=== PATIENT | male | born 1970 | race Caucasian/White ===

== ENCOUNTER 2017-01-23 00:58 | Observation (INO) | payer OTHER ==
[2017-01-23] VITALS (10 sets, daily range): BP systolic 141–204; BP diastolic 91–116; PULSE 67–82; RESP 15–18; TEMP 97.5–97.7; O2SAT 95–99
[2017-01-23] MEDS ORDERED: IOHEXOL 350 MG/ML 10 ML VIAL (for RAD DIAG) IVCONTRAST ONE (00:59)
[2017-01-23] MEDS ORDERED: NITROGLYCERIN 0.4 MG SL 25 TABS/BTL SL ONE (01:30)
[2017-01-23] MEDS ORDERED: ASPIRIN 81 MG CHEW TAB PO ONE (01:30)
[2017-01-23] MEDS ORDERED: SODIUM CHLORIDE 0.9% FLUSH 10 ML FLUSH IVF PRN (01:30)
[2017-01-23] MEDS ORDERED: ALLO300T2 PO (01:32)
[2017-01-23] MEDS ORDERED: ATOR1TAB18 PO (01:32)
[2017-01-23] MEDS ORDERED: LISI10TA3 PO (01:32)
--- NOTE | 2017-01-23 01:34 | PD ---
HPI Chief Complaint: Chest Pain Time Seen by Provider: :26 Travel History International Travel<30 days: No Contact w/Intl Traveler<30days: No Traveled to known affect area: No History of Present Illness HPI 46-year-old male with history of hypertension, hyperlipidemia, fluid and yesterday from [place] for vacation, here for evaluation of chest pain. The patient reports that when he was lying down to go to sleep tonight at around 11: 00 PM he began to have substernal chest discomfort. The pain was constant, no modifying factors, does not radiate. Currently the pain is a lot less than what it was, however is still present. He states that his lisinopril was recently increased about 3 weeks ago and after taking his dose this morning he felt a degrees sensation. He denies fevers, chills, cough, recent illness. No history of DVT or PE. No known history of coronary artery disease. No family history of coronary artery disease. He is a nonsmoker. He reports similar symptoms 2 weeks ago in [place] and reports that he was admitted for overnight observation and have a stress test that he was told was normal. [facility] Past Medical History High Cholesterol: Yes Diminished Hearing: No Hypertension: Yes Past Surgical History Surgical History: No Previous Surgery Social History Alcohol Use: Yes (4 DRINKS DAILY) Tobacco Use: No Substance Use: No Allergies-Medications (Allergen,Severity, Reaction): Coded Allergies: No Known Allergies (Unverified , 01/23/17) Reported Meds & Prescriptions Reported Meds & Active Scripts Active Reported Allopurinol 300 Mg Tab 300 Mg PO DAILY Atorvastatin (Atorvastatin Calcium) 80 Mg Tab 80 Mg PO HS Lisinopril 10 Mg Tab 10 Mg PO BID Review of Systems Except as stated in HPI: all other systems reviewed are Neg Physical Exam Narrative GENERAL: Well-developed, well-nourished, comfortable, no apparent distress. SKIN: Focused skin assessment warm/dry. HEAD: Atraumatic. Normocephalic. EYES: Pupils equal and round. No scleral icterus. No injection or drainage. ENT: Mucous membranes pink and moist. NECK: Trachea midline. No JVD. CARDIOVASCULAR: Regular rate and rhythm. Distal pulses brisk and equal bilaterally. RESPIRATORY: No accessory muscle use. Clear to auscultation. Breath sounds equal bilaterally. GASTROINTESTINAL: Abdomen soft, non-tender, nondistended. MUSCULOSKELETAL: No obvious deformities. No clubbing. No cyanosis. No edema. NEUROLOGICAL: Awake and alert. No obvious cranial nerve deficits. Motor grossly within normal limits. Normal speech. PSYCHIATRIC: Appropriate mood and affect; insight and judgment normal. Data Data Last Documented VS Vital Signs Date Time Temp Pulse Resp B/P (MAP) Pulse Ox O2 Delivery O2 Flow Rate FiO2 01/23/17 02:56 75 16 159/103 (121) 96 Nasal Cannula 01/23/17 01:22 2.00 01/23/17 00:59 97.7 Orders Orders Electrocardiogram (01/23/17 01:30) Basic Metabolic Panel (Bmp) (01/23/17 01:30) Ckmb (Isoenzyme) Profile (01/23/17:30) Complete Blood Count With Diff (01/23/17:30) D-Dimer (01/23/17 01:30) Prothrombin Time / Inr (Pt) (01/23/17 01:30) Act Partial Throm Time (Ptt) (01/23/17:30) Troponin I (01/23/17 01:30) Chest, Single Ap (01/23/17 01:30) Ecg Monitoring (01/23/17 01:30) Iv Access Insert/Monitor (01/23/17:30) Oximetry (01/23/17 01:30) Aspirin Chew (Aspirin Chew) (01/23/17 01:30) Sodium Chloride 0.9% Flush (Ns Flush) (01/23/17 01:30) Nitroglycerin Sl (Nitrostat Sl) (01/23/17 01:30) CKMB (01/23/17 01:00) CKMB% (01/23/17 01:00) Ct Pulmonary Angiogram (01/23/17 02:31) Iohexol 350 Inj (Omnipaque 350 Inj) (01/23/17 00:59) Labs Laboratory Tests Test 01/23/17 01:00 White Blood Count 8.6 TH/MM3 Red Blood Count 5.01 MIL/MM3 Hemoglobin 15.1 GM/DL Hematocrit 42.7 % Mean Corpuscular Volume 85.1 FL Mean Corpuscular Hemoglobin 30.1 PG Mean Corpuscular Hemoglobin Concent 35.4 % Red Cell Distribution Width 13.8 % Platelet Count 215 TH/MM3 Mean Platelet Volume 8.7 FL Neutrophils (%) (Auto) 58.5 % Lymphocytes (%) (Auto) 26.6 % Monocytes (%) (Auto) 11.0 % Eosinophils (%) (Auto) 3.3 % Basophils (%) (Auto) 0.6 % Neutrophils # (Auto) 5.1 TH/MM3 Lymphocytes # (Auto) 2.3 TH/MM3 Monocytes # (Auto) 0.9 TH/MM3 Eosinophils # (Auto) 0.3 TH/MM3 Basophils # (Auto) 0.1 TH/MM3 CBC Comment DIFF FINAL Differential Comment Prothrombin Time 10.0 SEC Prothromb Time International Ratio 0.9 RATIO Activated Partial Thromboplast Time 25.9 SEC D-Dimer Quantitative (PE/DVT) 0.60 MG/L FEU Blood Urea Nitrogen 19 MG/DL Creatinine 1.04 MG/DL Random Glucose 107 MG/DL Calcium Level 8.9 MG/DL Sodium Level 140 MEQ/L Potassium Level 3.9 MEQ/L Chloride Level 106 MEQ/L Carbon Dioxide Level 25.3 MEQ/L Anion Gap 9 MEQ/L Estimat Glomerular Filtration Rate 77 ML/MIN Total Creatine Kinase 182 U/L Creatine Kinase MB 1.5 NG/ML Troponin I LESS THAN 0.02 NG/ML MDM Medical Decision Making Medical Screen Exam Complete: Yes Emergency Medical Condition: Yes Interpretation(s) EKG: Sinus, rate 75, normal axis, normal intervals, no acute ischemic abnormality. Differential Diagnosis ACS, pneumothorax, pericarditis, PE, pneumonia, hypertensive crisis, GERD Narrative Course Vital signs reviewed, blood pressure improved from 204/116-159/103 after sublingual nitroglycerin. CBC is unremarkable. BMP is essentially unremarkable. Cardiac enzymes are negative. D-dimer slightly elevated at 0.6. Chest x-ray shows no acute disease. The pulmonary angiogram shows no PE, no infiltrate. Patient's chest pain resolved with sublingual nitroglycerin. He has several cardiac risk factors. I would like to place him in the chest pain center for further cardiac evaluation. He is amenable to this plan. Diagnosis Primary Impression: Chest pain Qualified Codes: R07.9 - Chest pain, unspecified Admitting Information Admitting Physician Requests: Sukhdeep Yu MD Jan 23, 2017 01:34
[2017-01-23 01:53] LABS: AUTOMATED NEUTROPHIL # 5.1 TH/MM3 (1.8-7.7); BASOPHIL # 0.1 TH/MM3 (0-0.2); BASOPHIL % 0.6 % (0.0-2.0); EOSINOPHIL # 0.3 TH/MM3 (0-0.4); EOSINOPHIL % 3.3 % (0.0-4.0); HEMATOCRIT 42.7 % (39.0-51.0); HEMOGLOBIN 15.1 GM/DL (13.0-17.0); LYMPH % 26.6 % (9.0-44.0); LYMPHOCYTE # 2.3 TH/MM3 (1.0-4.8); MEAN CELL VOLUME 85.1 FL (80.0-100.0); MEAN CORPUSCULAR HEMOGLOBIN 30.1 PG (27.0-34.0); MEAN CORPUSCULAR HGB CONC 35.4 % (32.0-36.0); MEAN PLATELET VOLUME 8.7 FL (7.0-11.0); MONOCYTE # 0.9 TH/MM3 (0-0.9); NEUT % 58.5 % (16.0-70.0); PLATELET COUNT 215 TH/MM3 (150-450); RED BLOOD COUNT 5.01 MIL/MM3 (4.50-5.90); RED CELL DISTRIBUTION WIDTH 13.8 % (11.6-17.2); WHITE BLOOD COUNT 8.6 TH/MM3 (4.0-11.0)
[2017-01-23 02:16] LABS: BICARBONATE 25.3 MEQ/L (21.0-32.0); BLOOD UREA NITROGEN 19 MG/DL (7-18); CALCIUM 8.9 MG/DL (8.5-10.1); CHLORIDE 106 MEQ/L (98-107); CREATININE 1.04 MG/DL (0.60-1.30); GLOMERULAR FILTRATION RATE 77 ML/MIN (>89); GLUCOSE,RANDOM 107 MG/DL (74-106); SODIUM (NA) 140 MEQ/L (136-145); TROPONIN I LESS THAN 0.02 NG/ML (0.02-0.05)
--- NOTE | 2017-01-23 02:19 | RADRPT ---
EXAM DATE/TIME: 01/23/2017 01:39 [facility] COMPARISON: No previous studies available for comparison. INDICATIONS : Chest pain. MEDICAL HISTORY : Hypertension. SURGICAL HISTORY : None. ENCOUNTER: Initial ACUITY: 3 weeks PAIN SCORE: 5/10 LOCATION: Bilateral chest FINDINGS: A single view of the chest demonstrates the lungs to be symmetrically aerated without evidence of mas s, infiltrate or effusion. The cardiomediastinal contours are unremarkable. Osseous structures are intact. CONCLUSION: No acute disease. Frank Rangel MD on January 23, 2017 at 2:18 Board Certified Radiologist. This report was verified electronically.
[2017-01-23 02:21] LABS: INTERNATIONAL NORMALIZED RATIO 0.9 RATIO
[2017-01-23 02:23] LABS: D-DIMER 0.6 MG/L FEU (0.00-0.50)
--- NOTE | 2017-01-23 03:57 | RADRPT ---
EXAM DATE/TIME: 01/23/2017 03:18 [facility] COMPARISON: No previous studies available for comparison. INDICATIONS : Midsternal chest pain. Elevated D-Dimer. IV CONTRAST: 70 cc Omnipaque 350 (iohexol) IV RADIATION DOSE: 23.38 CTDIvol (mGy) MEDICAL HISTORY : Hypertension. SURGICAL HISTORY : None. ENCOUNTER: Initial ACUITY: 1 day PAIN SCALE: 6/10 LOCATION: chest TECHNIQUE: Volumetric scanning of the chest was performed using a pulmonary embolism protocol MIP images were re constructed. Using automated exposure control and adjustment of the mA and/or kV according to patien t size, radiation dose was kept as low as reasonably achievable to obtain optimal diagnostic quality images. DICOM format image data is available electronically for review and comparison. Follow-up recommendations for detected pulmonary nodules are based at a minimum on nodule size and pa tient risk factors according to Fleischner Society Guidelines. FINDINGS: PULMONARY ARTERIES: No filling defects are seen in the pulmonary arteries through the segmental level. LUNGS: There is no consolidation or pneumothorax . No concerning pulmonary nodule is visualized. PLEURAE: There is no pleural thickening or pleural effusion. MEDIASTINUM: There is good visualization of the great vessels of the middle mediastinum. No evidence of mediastin al or hilar adenopathy/mass. MUSCULOSKELETAL: Within normal limits for patient age. MISCELLANEOUS: The visualized upper abdominal organs demonstrate no acute abnormality. CONCLUSION: 1. No evidence of pulmonary embolism. 2. No infiltrate. Frank Rangel MD on January 23, 2017 at 3:55 Board Certified Radiologist. This report was verified electronically.
[2017-01-23] MEDS ORDERED: SODIUM CHLORIDE 0.9% FLUSH 10 ML FLUSH IV FLUSH PRN (04:30)
[2017-01-23 05:29] LABS: TROPONIN I LESS THAN 0.02 NG/ML (0.02-0.05)
--- NOTE | 2017-01-23 08:24 | HHI.HP ---
HPI Primary Care Physician Non-Staff Chief Complaint CHEST PAIN History of Present Illness This is a 46-year-old male that presents to ED to evaluate CP that began last night. States it woke him up several times each lasting a few minutes at a time. Does not recall being short of breath, nauseous, or diaphoretic. States he was recently diagnosed with hypertension placed on lisinopril 3 weeks ago. States he's had intermittent dizziness but this was prior to starting lisinopril. Denies difficulty swallowing. Denies swelling in his mouth. Flew to [facility] couple days ago from [place] for vacation. Denies calf pain or swelling. Denies inspirational chest discomfort. Denies recent illness. Denies fevers or chills. States he has seen a asp net mvc developer and had a normal stress test 2 weeks ago by the asp net mvc developer. Review of Systems General: Patient denies fevers, chills recent, and recent travel HEENT: Patient denies headache, sore throat, difficulty swallowing. Cardiovascular: Has the chest discomfort as mentioned above. Denies sensation of heart beating rapidly or irregularly. No syncope. Denies diaphoresis. Respiratory: Denies shortness of breath or inspirational chest discomfort. Denies coughing wheezing or hemoptysis. GI: Patient denies nausea, vomiting, diarrhea, abdominal pain, bloody stools. Musculoskeletal: Patient denies joint pain or edema. Denies calf pain or edema. Neurovascular: Patient denies numbness, tingling, weakness in extremities. Denies headache. Endocrine: Denies polyuria and polydipsia. Hematologic: Denies easy bruising. Skin: Denies rash or itching. Past Family Social History Allergies: Coded Allergies: No Known Allergies (Unverified , 01/23/17) Past Medical History Recently diagnosed hypertension and hyperlipidemia. Denies diabetes and known CAD. Past Surgical History Denies. Reported Medications Reported Meds & Active Scripts Active Reported Allopurinol 300 Mg Tab 300 Mg PO DAILY Atorvastatin (Atorvastatin Calcium) 80 Mg Tab 80 Mg PO HS Lisinopril 10 Mg Tab 10 Mg PO BID Active Ordered Medications Current Medications Medications (Trade) Dose Ordered Sig/Zaki Route Start Time Stop Time Status Last Admin (NS Flush) 2 ml UNSCH PRN IVF 01/23/17 01:30 (NS Flush) 2 ml UNSCH PRN IV FLUSH 01/23/17 04:30 (NS Flush) 2 ml BID IV FLUSH 01/23/17 09:00 01/23/17 08:00 Family History Denies family history of CAD. Social History Does not smoke. Has occasional alcohol. Denies illicit drugs. Physical Exam Vital Signs Vital Signs Date Time Temp Pulse Resp B/P (MAP) Pulse Ox O2 Delivery O2 Flow Rate FiO2 01/23/17 07:43 97.7 67 15 155/91 (112) 99 01/23/17 07:09 95 21 01/23/17 06:07 79 01/23/17 05:51 97.5 69 18 141/96 (111) 98 01/23/17 05:45 96 Room Air 01/23/17 05:34 68 16 147/94 (111) Room Air 01/23/17 05:04 96 Nasal Cannula 2.00 01/23/17 02:56 75 16 159/103 (121) 96 Nasal Cannula 01/23/17 02:00 76 16 158/95 (116) 01/23/17 01:22 77 18 98 Nasal Cannula 2.00 01/23/17 00:59 97.7 82 18 204/116 (145) 99 Room Air Physical Exam GENERAL: This is a well-nourished, well-developed patient, in no apparent distress. Patient speaks in clear complete sentences. Patient is pleasant. HEENT: Head is atraumatic and normocephalic. Neck is supple without lymphadenopathy and trachea is midline. No JVD or carotid bruits. CARDIOVASCULAR: Regular rate and rhythm without murmurs, gallops, or rubs. RESPIRATORY: Clear to auscultation. Breath sounds equal bilaterally. No wheezes , rales, or rhonchi. Chest wall is nontender. No use of accessory muscles. GASTROINTESTINAL: Abdomen is nontender, nondistended. Abdomen soft. No obvious pulsatile mass or bruit. No CVA tenderness. Strong femoral pulses bilaterally. Normal bowel sounds in all quadrants. MUSCULOSKELETAL: Patient is moving upper and lower extremities freely. No calf tenderness or edema, no Homans sign. Strong pulses in upper and lower extremities. NEUROLOGICAL: Patient is alert and oriented. Cranial nerves 2-12 are grossly intact. No focal deficits and speech is clear. SKIN: No rash and turgor is normal. Laboratory Laboratory Tests Test 01/23/17 01:00 01/23/17 04:10 10/26/17 07:15 White Blood Count 8.6 Red Blood Count 5.01 Hemoglobin 15.1 Hematocrit 42.7 Mean Corpuscular Volume 85.1 Mean Corpuscular Hemoglobin 30.1 Mean Corpuscular Hemoglobin Concent 35.4 Red Cell Distribution Width 13.8 Platelet Count 215 Mean Platelet Volume 8.7 Neutrophils (%) (Auto) 58.5 Lymphocytes (%) (Auto) 26.6 Monocytes (%) (Auto) 11.0 Eosinophils (%) (Auto) 3.3 Basophils (%) (Auto) 0.6 Neutrophils # (Auto) 5.1 Lymphocytes # (Auto) 2.3 Monocytes # (Auto) 0.9 Eosinophils # (Auto) 0.3 Basophils # (Auto) 0.1 CBC Comment DIFF FINAL Differential Comment Prothrombin Time 10.0 Prothromb Time International Ratio 0.9 Activated Partial Thromboplast Time 25.9 D-Dimer Quantitative (PE/DVT) 0.60 Blood Urea Nitrogen 19 Creatinine 1.04 Random Glucose 107 Calcium Level 8.9 Sodium Level 140 Potassium Level 3.9 Chloride Level 106 Carbon Dioxide Level 25.3 Anion Gap 9 Estimat Glomerular Filtration Rate 77 Total Creatine Kinase 182 97 Creatine Kinase MB 1.5 Troponin I LESS THAN 0.02 LESS THAN 0.02 Result Diagram: 01/23/179901/23/1799 Imaging Last [address] Angiography 01/23/17230 Signed Impressions: Service Date/Time: December 03:18 - CONCLUSION: 1. No evidence of pulmonary embolism. 2. No infiltrate. Frank Rangel MD Chest X-Ray 01/23/17129 Signed Impressions: Service Date/Time: December 01:39 - CONCLUSION: No acute disease. Frank Rangel MD Course EKGs are sinus rhythm without significant ST segment depressions or elevations. Caprini VTE Risk Assessment Caprini VTE Risk Assessment: No/Low Risk (score <= 1) Caprini Risk Assessment Model Point Value = 1 Point Value = 2 Point Value = 3 Point Value = 5 Age 41-60 Minor surgery BMI > 25 kg/m2 Swollen legs Varicose veins or History of unexplained or recurrent spontaneous Oral contraceptives or hormone replacement Sepsis (< 1 month) Serious lung disease, including pneumonia (< 1 month) Abnormal pulmonary function Acute myocardial infarction Congestive heart failure (< 1 month) History of inflammatory bowel disease Medical patient at bed rest Age 61-74 Arthroscopic surgery Major open surgery (> 45 min) Laparoscopic surgery (> 45 min) Malignancy Confined to bed (> 72 hours) Immobilizing plaster cast Central venous access Age >= 75 History of VTE Family history of VTE Factor V Leiden Prothrombin [id number] Lupus anticoagulant Anticardiolipin antibodies Elevated serum homocysteine Heparin-induced thrombocytopenia Other congenital or acquired thrombophilia Stroke (< 1 month) Elective arthroplasty Hip, pelvis, or leg fracture Acute spinal cord injury (< 1 month) Prophylaxis Regimen Total Risk Factor Score Risk Level Prophylaxis Regimen 0-1 Low Early ambulation 2 Moderate Order ONE of the following: *Sequential Compression Device (SCD) *Heparin 5000 units SQ BID 3-4 Higher Order ONE of the following medications: *Heparin 5000 units SQ TID *Enoxaparin/Lovenox 40 mg SQ daily (WT < 150 kg, CrCl > 30 mL/min) *Enoxaparin/Lovenox 30 mg SQ daily (WT < 150 kg, CrCl > 10-29 mL/min) *Enoxaparin/Lovenox 30 mg SQ BID (WT < 150 kg, CrCl > 30 mL/min) AND/OR *Sequential Compression Device (SCD) 5 or more Highest Order ONE of the following medications: *Heparin 5000 units SQ TID (Preferred with Epidurals) *Enoxaparin/Lovenox 40 mg SQ daily (WT < 150 kg, CrCl > 30 mL/min) *Enoxaparin/Lovenox 30 mg SQ daily (WT < 150 kg, CrCl > 10-29 mL/min) *Enoxaparin/Lovenox 30 mg SQ BID (WT < 150 kg, CrCl > 30 mL/min) AND *Sequential Compression Device (SCD) Assessment and Plan Assessment and Plan * Atypical chest pain: Patient has had serial cardiac enzymes and EKGs for ruling out purposes. He was seen by Dr. Carlos Costa of cardiology and the chest pain center. Had stated recent normal stress test 2 weeks ago in [place]. There will be no further cardiac testing at this time. He should follow back with his edition return to [place] but return to ED for interval issues. * Hypertension: Continue current medication. * Hyperlipidemia: Continue current medication. Patient is stable at this time. He is agreeable to this plan. Tutu Smith Jan 23, 2017 08:24
[2017-01-23] MEDS ORDERED: SODIUM CHLORIDE 0.9% FLUSH 10 ML FLUSH IV FLUSH SCH (09:00)
[2017-01-23 09:02] LABS: TROPONIN I LESS THAN 0.02 NG/ML (0.02-0.05)
--- NOTE | 2017-01-23 09:19 | HHI.DCPOC ---
Discharge Care Plan Diagnosis: (1) Hypertension (2) Hyperlipidemia (3) Chest pain Goals to Promote Your Health * To prevent worsening of your condition and complications * To maintain your health at the optimal level Directions to Meet Your Goals Take your medications as prescribed Follow your dietary instruction Follow activity as directed Keep your appointments as scheduled Take your immunizations and boosters as scheduled If your symptoms worsen call your PCP, if no PCP go to Urgent Care Center or Emergency Room Smoking is Dangerous to Your Health. Avoid second hand smoke Call the 24-hour hour crisis hotline for domestic abuse at Tutu Smith Jan 23, 2017 09:19
--- NOTE | 2017-01-23 09:19 | HHI.DCPOC ---
Discharge Care Plan Diagnosis: (1) Hypertension (2) Hyperlipidemia (3) Chest pain Goals to Promote Your Health * To prevent worsening of your condition and complications * To maintain your health at the optimal level Directions to Meet Your Goals Take your medications as prescribed Follow your dietary instruction Follow activity as directed Keep your appointments as scheduled Take your immunizations and boosters as scheduled If your symptoms worsen call your PCP, if no PCP go to Urgent Care Center or Emergency Room Smoking is Dangerous to Your Health. Avoid second hand smoke Call the 24-hour hour crisis hotline for domestic abuse at Tutu Smith Jan 23, 2017 09:19
--- NOTE | 2017-01-23 09:19 | HHI.DCPOC ---
Discharge Care Plan Diagnosis: (1) Hypertension (2) Hyperlipidemia (3) Chest pain Goals to Promote Your Health * To prevent worsening of your condition and complications * To maintain your health at the optimal level Directions to Meet Your Goals Take your medications as prescribed Follow your dietary instruction Follow activity as directed Keep your appointments as scheduled Take your immunizations and boosters as scheduled If your symptoms worsen call your PCP, if no PCP go to Urgent Care Center or Emergency Room Smoking is Dangerous to Your Health. Avoid second hand smoke Call the 24-hour hour crisis hotline for domestic abuse at Tutu Smith Jan 23, 2017 09:19
[2017-01-23] MEDS ORDERED: LISINOPRIL 10 MG TAB PO SCH (09:30)
[2017-01-23] MEDS ORDERED: ATORVASTATIN 80 MG TAB PO SCH (21:00)
[2017-01-24] MEDS ORDERED: ALLOPURINOL 300 MG TAB PO SCH (09:00)
--- NOTE | 2017-01-25 12:57 | EKG ---
Date Performed: 01/23/2017 Time Performed: 07:37:11 PTAGE: 46 years EKG: Sinus rhythm NORMAL ECG NO PREVIOUS TRACING DOCTOR: Agustin Lance Interpretating Date/Time 01/25/2017 12:56:09
--- NOTE | 2017-01-25 12:57 | EKG ---
Date Performed: 01/23/2017 Time Performed: 04:07:06 PTAGE: 46 years EKG: Sinus rhythm NORMAL ECG NO PREVIOUS TRACING DOCTOR: Agustin Lance Interpretating Date/Time 01/25/2017 12:56:37
--- NOTE | 2017-01-25 12:57 | EKG ---
Date Performed: 01/23/2017 Time Performed: 04:07:06 PTAGE: 46 years EKG: Sinus rhythm NORMAL ECG NO PREVIOUS TRACING DOCTOR: Agustin Lance Interpretating Date/Time 01/25/2017 12:56:37
--- NOTE | 2017-01-25 12:57 | EKG ---
Date Performed: 01/23/2017 Time Performed: 04:07:06 PTAGE: 46 years EKG: Sinus rhythm NORMAL ECG NO PREVIOUS TRACING DOCTOR: Agustin Lance Interpretating Date/Time 01/25/2017 12:56:37
--- NOTE | 2017-01-25 12:57 | EKG ---
Date Performed: 01/23/2017 Time Performed: 07:37:11 PTAGE: 46 years EKG: Sinus rhythm NORMAL ECG NO PREVIOUS TRACING DOCTOR: Agustin Lance Interpretating Date/Time 01/25/2017 12:56:09
--- NOTE | 2017-01-25 12:57 | EKG ---
Date Performed: 01/23/2017 Time Performed: 07:37:11 PTAGE: 46 years EKG: Sinus rhythm NORMAL ECG NO PREVIOUS TRACING DOCTOR: Agustin Lance Interpretating Date/Time 01/25/2017 12:56:09
--- NOTE | 2017-01-25 12:58 | EKG ---
Date Performed: 01/23/2017 Time Performed: 01:18:33 PTAGE: 46 years EKG: Sinus rhythm NORMAL ECG NO PREVIOUS TRACING DOCTOR: Agsutin Lance Interpretating Date/Time 01/25/2017 12:56:55
--- NOTE | 2017-01-25 12:58 | EKG ---
Date Performed: 01/23/2017 Time Performed: 01:18:33 PTAGE: 46 years EKG: Sinus rhythm NORMAL ECG NO PREVIOUS TRACING DOCTOR: Agustin Lance Interpretating Date/Time 01/25/2017 12:56:55
--- NOTE | 2017-01-25 12:58 | EKG ---
Date Performed: 01/23/2017 Time Performed: 01:18:33 PTAGE: 46 years EKG: Sinus rhythm NORMAL ECG NO PREVIOUS TRACING DOCTOR: Agustin Lance Interpretating Date/Time 01/25/2017 12:56:55
== END 2017-01-23 10:00 | disposition home or self-care (01) ==
LOC: NEPC 00:58 → NEDA 04:25 → NEPFCDU 05:39
PROVIDERS: ADMIT Internal Medicine Cardiovascular Disease; ATTEND Internal Medicine Cardiovascular Disease
DX: R07.89 Other chest pain (principal); I10 Essential (primary) hypertension; E78.5 Hyperlipidemia, unspecified; E78.00 Pure hypercholesterolemia, unspecified; Z79.899 Other long term (current) drug therapy
CPT/HCPCS: 71010; 71275; 80048; 82550; 82552; 84484; 85025; 85379; 85610; 85730; 93005; 99285; G0378; Q9967